=== PATIENT | male | born 1960 | race American Indian/Alaskan Native ===

== ENCOUNTER 2017-03-29 04:53 | Emergency (ER) | payer MEDICAID ==
[2017-03-29 05:11] VITALS: TEMP 98
--- NOTE | 2017-03-29 06:12 | C.PDOC ---
History Of Present Illness 56 year old male who presents to the ER under [facility] custody for medical clearance for incarceration. Patient was being processed and was found to have an elevated blood pressure so he was sent to the ER for clearance. Patient has a Hx of HTN and reports he has not taken his medication of HCTZ 25mg and [id number] mg in 2 days. Denies headache, SOB, chest pain, dizziness, change in vision, or weakness. Time Seen by Provider: 03/29/17 05:22 Chief Complaint (Nursing): Medical Clearance History Per: Patient, Other History/Exam Limitations: no limitations ([facility]) Onset/Duration Of Symptoms: Days Current Symptoms Are (Timing): Still Present Severity: None Recent travel outside of the [place]: No Past Medical History Reviewed: Historical Data, Nursing Documentation, Vital Signs Vital Signs: Last Vital Signs Temp 98 F 03/29/17 06:32 Pulse 72 03/29/17 06:32 Resp 72 H 03/29/17 06:32 BP 150/80 03/29/17 06:32 Pulse Ox 99 03/29/17 06:37 - Medical History PMH: Anxiety, HTN Surgical History: No Surg Hx Family History: States: Unknown Family Hx - Social History Hx Alcohol Use: Yes Hx Substance Use: No - Immunization History Hx Tetanus Toxoid Vaccination: No Hx Influenza Vaccination: No Hx Pneumococcal Vaccination: No Review Of Systems Eyes: Negative for: Vision Change Cardiovascular: Negative for: Chest Pain, Palpitations Respiratory: Negative for: Shortness of Breath Gastrointestinal: Negative for: Nausea, Vomiting Neurological: Negative for: Headache, Dizziness Physical Exam - Physical Exam Appears: Non-toxic, No Acute Distress Skin: Normal Color, Warm, Dry Head: Atraumatic, Normacephalic Eye(s): bilateral: Normal Inspection, PERRL, EOMI Oral Mucosa: Moist Neck: Normal, Supple Chest: Symmetrical, No Tenderness Cardiovascular: Rhythm Regular, No Murmur Respiratory: Normal Breath Sounds, No Rales, No Rhonchi, No Wheezing Gastrointestinal/Abdominal: Soft, No Tenderness Neurological/Psych: Oriented x3, Normal Speech, Normal Cognition, Other (No focal deficits) ED Course And Treatment O2 Sat by Pulse Oximetry: 99 (Room air) Pulse Ox Interpretation: Normal Progress Note: Hydrodiuril and procardia administered. Disposition Counseled Patient/Family Regarding: Diagnosis, Need For Followup, Rx Given - Disposition Referrals: [facility] [Outside] Disposition: RELEASED IN POLICE CUSTODY Disposition Time: 06:07 Condition: STABLE Additional Instructions: Please follow up with a doctor as soon as possible Fill out meds and take as instructed Return to ER if worse PATIENT IS MEDICALLY CLEARED FOR INCARCERATION Prescriptions: Hydrochlorothiazide [Microzide] 25 mg PO DAILY #10 cap Nifedipine [Procardia] 60 mg PO DAILY #10 capsule Instructions: Hypertension (ED) Forms: Interview (American) - Clinical Impression Clinical Impression: Medical assessment - Scribe Statement The provider has reviewed the documentation as recorded by the Scribe Ministerio Castellanos All medical record entries made by the Scribe were at my direction and personally dictated by me. I have reviewed the chart and agree that the record accurately reflects my personal performance of the history, physical exam, medical decision making, and the department course for this patient. I have also personally directed, reviewed, and agree with the discharge instructions and disposition.
[2017-03-29 06:34] VITALS: BP 150/80; PULSE 72; RESP 72; O2SAT 99
== END 2017-03-29 06:32 ==
LOC: C.ER 04:53
DX: Z02.89 Encounter for other administrative examinations (principal); I10 Essential (primary) hypertension